=== PATIENT | female | born 1995 | race Caucasian/White ===

== ENCOUNTER 2018-01-05 18:33 | Emergency (ER) | END 2018-01-06 00:33 | disposition home or self-care (01) ==

== ENCOUNTER 2018-07-08 08:09 | Inpatient (IN) | payer OTHER ==
[~2018-07-08] VITALS: Ht 157.5 cm; Wt 92.0 kg
[2018-07-08] VITALS (10 sets, daily range): BP systolic 116–141; BP diastolic 60–84; PULSE 75–87; RESP 16–80; Ht 157.5 cm; Wt 92.0 kg
[~2018-07-08 08:09] MED LIST: FAMO-96 PO; ONDA4TAB14 PO; PRENAT PO
[2018-07-08] MEDS ORDERED: OXYTOCIN 30 UNITS/LR 500 ML IV SCH ×2 (09:00→15:13)
[2018-07-08] MEDS ORDERED: MISOPROSTOL 200 MCG TAB PR PRN ×2 (09:00→15:30)
[2018-07-08] MEDS ORDERED: METHYLERGONOVINE 0.2 MG INJ IM PRN ×2 (09:00→15:30)
[2018-07-08] MEDS ORDERED: CARBOPROST 250 MCG INJ IM PRN ×2 (09:00→15:30)
[2018-07-08] MEDS ORDERED: CEFAZOLIN 2 GM/50 ML (PMX) 50 ML IVPB SCH (09:00)
[2018-07-08] MEDS ORDERED: OXYTOCIN 30 UNITS/LR 500 ML IV PRN ×2 (09:00→15:30)
[2018-07-08] MEDS: LACTATED RINGER'S 1,000 ML IV SCH ×2 (09:10→10:09)
--- NOTE | 2018-07-08 10:10 | PREAC ---
Date/Time of Note Date/Time of Note DATE: 07/08/18 TIME: 10:09 Anesthesia Eval and Record Evaluation Time Pre-Procedure Interview DATE: 07/08/18 TIME: 10:09 Age 22 Sex female NPO: 8 hrs Preoperative diagnosis iup at 39 weeks Planned procedure repeat c section Past Medical History Past Medical History: None Surgery & Anesthesia Issues No known issue Meds Anticoagulation: No Beta Eric within 24 hr: No Reason Beta Eric not given: Pt. not on B-Eric Reported Medications Multivit/Min/Fol Ac/Iron/Pren* ( S*) 1 Tab Tab, 1 TAB PO DAILY, TAB 02/11/15 Discontinued Scripts Ondansetron (Ondansetron Odt) 4 Mg Tab.rapdis, 4 MG PO Q6H PRN for NAUSEA AND/OR VOMITING, #10 TAB Prov:LIVIA BARLOW PA-C 01/06/18 Famotidine* (Pepcid*) 20 Mg Tablet, 20 MG PO BID, #30 TAB Prov:LIVIA BARLOW PA-C 01/06/18 Current Medications Lactated Ringer's 1,000 ml @ 125 mls/hr Q8H IV Last administered on 07/08/18at 09:10; Admin Dose 125 MLS/HR; Start 07/08/18 at 09:00 Cefazolin Sodium/ Dextrose 50 ml @ 100 mls/hr ONCE IVPB ; Start 07/08/18 at 09:00 Oxytocin/Lactated Ringer's 500 ml @ 125 mls/hr POST IV ; Start 07/08/18 at 09:00 Oxytocin/Lactated Ringer's 500 ml @ 0 mls/hr ONCE PRN IV .VAGINAL BLEEDING; Start 07/08/18 at 09:00 Methylergonovine Maleate (Methergine) 0.2 mg ONCE PRN IM .VAGINAL BLEEDING; Start 07/08/18 at 09:00 Carboprost Tromethamine (Hemabate) 250 mcg ONCE PRN IM .VAGINAL BLEEDING; Start 07/08/18 at 09:00 Misoprostol (Cytotec) 1,000 mcg ONCE PRN ND .VAGINAL BLEEDING; Start 07/08/18 at 09:00 Meds reviewed: Yes Allergies Coded Allergies: No Known Allergy (Unverified , 01/05/18) Allergies Reviewed: Yes Labs/Studies Labs Reviewed: Reviewed by anesthesiologist Result Diagram: 07/08/18 0853 Laboratory Tests 07/08/18 08:53 Blood Bank Test 07/08/18 08:53 Antibody Screen NEGATIVE Blood Type A POSITIVE Rh Immune Globulin Candidate NO test: Positive Pre-procedure Exam Last vitals Vital Signs Date Temp Pulse Resp B/P (MAP) Pulse Ox O2 O2 Flow FiO2 Time Delivery Rate 07/08/18 97.7 84 20 127/84 Room Air 08:36 (98) Airway: Adequate mouth opening, Adequate thyromental dist Mallampati: Mallampati I Teeth: Normal Lung: Normal Heart: Normal ASA Physical Status ASA physical status: 2 Emergency: None Planned Anesthetic Neuraxial: Spinal Planned Pain Management Sub-arachniod narcotics, Parenteral pain med Pre-operative Attestations Prior to commencing anesthesia and surgery, the patient was re-evaluated, there was verification of: *The patient's identity *The results of appropriate recent lab work and preoperative vital signs *The above evaluation not changing prior to induction *Anesthetic plan, risk benefits, alternative and complications discussed with patient/family; questions answered; patient/family understands, accepts and wishes to proceed. ILDEFONSO GRAF Jul 08, 2018 10:10
[2018-07-08] MEDS ORDERED: DEXAMETHASONE 4 MG/ML 1 ML INJ ONE (10:15)
[2018-07-08] MEDS ORDERED: ONDANSETRON 4 MG INJ ONE (10:15)
--- NOTE | 2018-07-08 10:15 | HP ---
Date/Time of Note Date/Time of Note DATE: 07/08/18 TIME: 10:13 OB - History Hx of Present Chief Complaint: term for repeat c/s Care: Good Care Ultrasounds: Normal mid trimester US Obstetrical Complications: None Medical Complications: None Past Family/Social History * Past Medical, Surgical, Family and Obstetric Histories reviewed from chart. OB Admission Exam Vital Signs Vital Signs Vital Signs Date Temp Pulse Resp B/P (MAP) Pulse Ox O2 O2 Flow FiO2 Time Delivery Rate 07/08/18 97.7 84 20 127/84 Room Air 08:36 (98) Physical Exam HEENT: WNL Heart: Rhythm Normal Lungs: Clear, Equal Abdomen: WNL Extremities: Normal Reflexes: Normal Cervical Dilatation: None Effacement: 0% Station: Ballotable Membranes: Intact Heart Rate: 120's Accelerations: Accelerations Present Decelerations: No Decelerations Contractions on Admission: None Last 72 hours Lab Results CBC & BMP 07/08/18 08:53 OB Assessment/Plan Reason for admission: section Plan: Section MORGAN GARCIA MD Jul 08, 2018 10:14
[2018-07-08] MEDS ORDERED: morphine SULFATE/PF (10 MG/10 ML) INJ ONE (11:01)
[2018-07-08] MEDS ORDERED: HYDROmorphONE 0.5 MG/0.5 ML SYG IV PRN ×2 (11:30)
[2018-07-08] MEDS ORDERED: NALOXONE (0.4 MG/ML) INJ IV PRN (11:30)
[2018-07-08] MEDS ORDERED: ONDANSETRON 4 MG INJ IV PRN (11:30)
[2018-07-08] MEDS ORDERED: DIPHENHYDRAMINE 50 MG INJ IV PRN (11:30)
[2018-07-08] MEDS ORDERED: ZOLPIDEM 5 MG TAB PO PRN (11:30)
--- NOTE | 2018-07-08 11:39 | PAC ---
Date/Time of Note Date/Time of Note DATE: 07/08/18 TIME: 11:38 Post-Anesthesia Notes Post-Anesthesia Note Last documented vital signs Vital Signs Date Temp Pulse Resp B/P (MAP) Pulse Ox O2 O2 Flow FiO2 Time Delivery Rate 07/08/18 97.7 84 20 127/84 Room Air 1136 (98) Activity: WNL Respiratory function: WNL Cardiovascular function: WNL Mental status: Baseline Pain reasonably controlled: Yes Hydration appropriate: Yes Nausea/Vomiting absent: Yes ILDEFONSO GRAF Jul 08, 2018 11:39
--- NOTE | 2018-07-08 11:51 | OPR ---
Operative Report Planned Procedure Procedure date Jul 08, 2018 Procedure(s) repeat c/s Performed by see signature line [facility]: JAMARI RUBIO MD Pre-procedure diagnosis repeat c/s [id number] Anesthesia Type: [id number] spinal Post-Procedure Post-procedure diagnosis repeat c/s Findings Live Baby [], Apgars [] and [], weight [], position [], [] presentation []cord. Estimated Blood Loss: 600 - 700 mls Specimen(s) none Grafts/Implant(s) none Complication(s) none Procedure Description Under satisfactory spinal [] anesthesia, the patient was prepped and draped and placed in a supine position, tilted to the left. Pfannenstiel incision was made, carried through the subcutaneous tissue. Bleeders brought under control with electrocautery. Fascia incised to the length of the incision. Rectus muscles from the fascia, divided midline. Peritoneum exposed, entered through a transverse incision. Exploration of abdomen revealed gravid uterus. Bladder flap was developed. Transverse incision was made in the lower segment of the uterus. Amniotic sac ruptured. [] amniotic fluid noted. [] Nasal oropharyngeal suction was performed. The baby was handed to the team for immediate attention. The placenta was delivered manually intact. Uterine cavity was cleaned with wet sponge and drainage established. Uterus closed in 2 layers using one monocryl [] in continuous fashion. Peritoneal cavity irrigated with warm saline. Sponge, needle and instrument count reported to be correct. Abdominal peritoneum closed with [one monocryl] continuously. Rectus muscle approximated with []. Fascia closed with []one mmonocryl, and skin closed with nico. Estimated blood loss [700]mL. MORGAN GARCIA MD Jul 08, 2018 11:51
[2018-07-08] MEDS: KETOROLAC 30 MG INJ IV PRN (14:24)
[2018-07-08] MEDS ORDERED: LACTATED RINGER'S 1,000 ML IV SCH (15:13)
[2018-07-08] MEDS ORDERED: NA PHOSPHATE/BIPHOS 133 ML ENEMA PR PRN (15:30)
[2018-07-08] MEDS ORDERED: NACL 0.9% 3 ML SYG IV SCH (15:30)
[2018-07-08] MEDS ORDERED: LANOLIN HPA 1 PKT TOP PRN (15:30)
[2018-07-09 00:30] VITALS: BP 121/56; PULSE 93; RESP 18
[2018-07-09] MEDS: KETOROLAC 30 MG INJ IV PRN ×2 (03:47→09:33)
[2018-07-09 04:33] VITALS: BP 102/56; PULSE 82; RESP 18
[2018-07-09 07:45] VITALS: BP 101/56; PULSE 78; RESP 18
[2018-07-09] MEDS: IBUPROFEN 800 MG TAB PO SCH ×2 (14:15→23:16)
[2018-07-09 16:06] VITALS: BP 95/62; PULSE 18; RESP 18
--- NOTE | 2018-07-09 18:35 | PN ---
Date/Time of Note Date/Time of Note DATE: 07/09/18 TIME: 18:32 OB Subjective Subjective Subjective POD#1 Patient is doing well. She denies nausea, vomiting, shortness of breath, chest pain, headache. She has been tolerating regular diet. Pain is well controlled on current medications OB Objective Objective Objective Vital Signs Date Temp Pulse Resp B/P (MAP) Pulse Ox O2 O2 Flow FiO2 Time Delivery Rate 07/09/18 97.8 18 18 95/62 (73) 16:06 07/09/18 Room Air 07:45 07/09/18 97 00:30 General: AAO X 3, comfortable, NAD, appropriate mood and affect. ABD: +BS. Soft, non-tender. Uterus 2 cm below umbilicus Incision: Clear, dry, intact. No erythema, drainage or induration. Flank: No CVA tenderness (B/L) LE: Mild edema. No clubbing, cyanosis, thigh or calf tenderness (B/L). Homans 'sign is negative OB Assessment/Plan Other plan: 22-year-old s/p delivery POD#1 - AF, VSS - Continue care - Follow up with ALEJO Cash Jul 09, 2018 18:35
[2018-07-09] MEDS: HYDROCODONE/APAP (5/325) TAB PO PRN (20:06)
[2018-07-09 20:30] VITALS: BP 110/71; PULSE 111; RESP 19
[2018-07-10] MEDS: HYDROCODONE/APAP (5/325) TAB PO PRN ×3 (03:42→18:41)
[2018-07-10 04:15] VITALS: BP 102/60; PULSE 72; RESP 19
[2018-07-10] MEDS: IBUPROFEN 800 MG TAB PO SCH ×3 (05:37→21:20)
[2018-07-10 08:15] VITALS: BP 107/58; PULSE 62; RESP 18
--- NOTE | 2018-07-10 09:24 | OPPN ---
Date/Time of Note Date/Time of Note DATE: 07/10/18 TIME: 09:24 Anesthesia Follow up Anesthesia Follow up Last documented vital signs Vital Signs Date Temp Pulse Resp B/P (MAP) Pulse Ox O2 O2 Flow FiO2 Time Delivery Rate 07/10/18 98.2 72 19 102/60 Room Air 04:15 (74) 07/09/18 97 00:30 Respiratory function: WNL Cardiovascular function: WNL Comments satisfactory pain management with intrathecal morphine. no complications ILDEFONSO GRAF Jul 10, 2018 09:24
--- NOTE | 2018-07-10 12:08 | DS ---
Date/Time of Note Date/Time of Note DATE: 07/10/18 TIME: 12:08 Discharge Summary Admission/Discharge Info Admit Date/Time Jul 08, 2018 at 08:09 Discharge Date/Time Discharge Diagnosis term Patient Condition: Stable Hospital Course unremarkable Home Meds Reported Medications Multivit/Min/Fol Ac/Iron/Pren* ( S*) 1 Tab Tab, 1 TAB PO DAILY, TAB 02/11/15 Discontinued Scripts Ondansetron (Ondansetron Odt) 4 Mg Tab.rapdis, 4 MG PO Q6H PRN for NAUSEA AND/OR VOMITING, #10 TAB Prov:LIVIA BARLOW PA-C 01/06/18 Famotidine* (Pepcid*) 20 Mg Tablet, 20 MG PO BID, #30 TAB Prov:LIVIA BARLOW PA-C 01/06/18 Primary Care Provider Not On Staff Doctor MORGNA GARCIA MD Jul 10, 2018 12:08
--- NOTE | 2018-07-10 14:44 | PN ---
Date/Time of Note Date/Time of Note DATE: 07/10/18 TIME: 14:42 OB Subjective Subjective Subjective Breast-feeding. Reports decreased vaginal bleeding. Passed flatus. Denies any nausea vomiting. Denies any fever or chills. No pain in the legs. Pain controlled with p.o. pain medication. On soft diet. Breast-feeding. OB Objective Objective Objective General appearance: Alert and oriented x4 does not appear to be in any acute distress Abdomen: Soft, fundus firm and palpable below the umbilicus. Incision clean dry and intact. Appropriate tenderness over the incision noted Extremities: No calf tenderness, no click no edema no cord palpable Breast: No evidence of mastitis or fissure VS - Last 72 Hours, by Label Date Temp Pulse Resp B/P (MAP) Pulse Ox O2 O2 Flow FiO2 Time Delivery Rate 07/10/18 98.2 62 18 107/58 Room Air 08:15 (74) 07/10/18 98.2 72 19 102/60 Room Air 04:15 (74) 07/09/18 98.2 111 19 110/71 Room Air 20:30 (84) 07/09/18 97.8 18 18 95/62 (73) 16:06 07/09/18 98.2 78 18 101/56 Room Air 07:45 (71) 07/09/18 98.2 82 18 102/56 Room Air 04:33 (71) 07/09/18 98.4 93 18 121/56 97 Room Air 00:30 (77) 07/08/18 98.3 82 18 116/64 96 Room Air 20:00 (81) 07/08/18 77 18 139/77 15:25 (97) 07/08/18 98.1 80 80 135/68 95 Room Air 15:00 (90) 07/08/18 77 18 128/60 98 Room Air 14:30 (82) 07/08/18 79 18 141/69 99 Room Air 14:15 (93) 07/08/18 83 16 124/61 99 Room Air 14:00 (82) 07/08/18 87 18 119/62 99 Room Air 13:45 (81) 07/08/18 97.8 75 18 120/60 93 Room Air 13:30 (80) 07/08/18 78 18 127/66 100 Room Air 13:15 (86) 07/08/18 97.7 84 20 127/84 Room Air 08:36 (98) OB Assessment/Plan Other Assessment: Postoperative day #2 Status post Doing well Routine postop care Advance diet Anticipate DC home tomorrow JUDY ROSAS MD Jul 10, 2018 14:44
[2018-07-10 15:16] VITALS: BP 120/80; PULSE 74; RESP 18
[2018-07-10 21:10] VITALS: BP 127/70; PULSE 74; RESP 18
[2018-07-11 04:30] VITALS: BP 118/77; PULSE 82; RESP 18
[2018-07-11] MEDS: HYDROCODONE/APAP (5/325) TAB PO PRN ×2 (04:31→10:36)
[2018-07-11] MEDS: IBUPROFEN 800 MG TAB PO SCH (05:35)
[2018-07-11] MEDS ORDERED: DIPHTH/TET/ACEL PERTUSS (ADULT) 0.5 ML VIAL IM* ONE (09:00)
[2018-07-11] MEDS ORDERED: MEASLES,MUMPS,RUBELLA VACCINE INJ SC* ONE (09:00)
[2018-07-11 10:00] VITALS: BP 129/70; PULSE 79; RESP 17
--- NOTE | 2018-07-12 12:33 | DELSUM ---
Delivery Summary A-C Datetime Report Generated by CPN: 07/12/2018 12:33 DELIVERY PERSONNEL Final Coat Sprayer: [place], May MATERNAL INFORMATION Delivery Anesthesia: Spinal Medications in Delivery: SEE ANESTHESIA RECORD Placenta Cultured: No Maternal Complications: Other Other Maternal Complications: PREV C/SECTION LABOR SUMMARY EDC: 07/11/2018 00:00 No. Babies in Womb: 1 Attempted: No Labor Anesthesia: None LABOR INFORMATION Reason for Induction: Not Applicable Oxytocin: N/A Group B Beta Strep: Positive Antibiotics # of Doses: 1 Antibiotics Time of Last Dose: 07/08/2018 10:30 Steroids Given: None Reason Steroids Not Administered: Not Applicable MEMBRANES Membranes Rupture Method: Artificial Rupture of Membranes: 07/08/2018 10:45 Length of Rupture (hr): 0.00 Amniotic Fluid Color: Clear Amniotic Fluid Amount: Small Amniotic Fluid Odor: None STAGES OF LABOR Stage 3 hr: 0 Stage 3 min: 1 CSECTION DELIVERY Primary Indication: Repeat Elective Other Primary Indication: PREVIOUS C/SECTION Secondary Indication: N/A CSection Urgency: Elective CSection Incidence: Repeat Labor: No Labor Elective: Nonelective CSection Incision: Lower Uterine Transverse BABY A INFORMATION Delivery Date/Time: 07/08/2018 10:45 Method of Delivery: Born in Route : No : N/A Forceps: N/A Vacuum Extraction: N/A Shoulder Dystocia : No SHOULDER DYSTOCIA BABY A Delivery Date/Time: 07/08/2018 10:45 PRESENTATION/POSITION BABY A Presentation: Cephalic Cephalic Presentation: Vertex Vertex Position: Left Occipital Anterior Breech Presentation: N/A PLACENTA INFORMATION BABY A Placenta Delivery Time : 07/08/2018 10:46 Placenta Method of Delivery: Manual Removal Placenta Status: Delivered SCORES BABY A Heart Rate 1 min: >100 bpm Resp Effort 1 min: Good Cry Reflex Irritability 1 min: Cough/Sneeze/Pulls Away Muscle Tone 1 min: Active Motion Color 1 min: Body [place], Extremit Blue Resuscitation Effort 1 min: Tactile Stimulation SCORE 1 MIN: 9 Heart Rate 5 min: >100 bpm Resp Effort 5 min: Good Cry Reflex Irritability 5 min: Cough/Sneeze/Pulls Away Muscle Tone 5 min: Active Motion Color 5 min: Body [place], Extremit Blue Resuscitation Effort 5 min: Tactile Stimulation SCORE 5 MIN: 9 INFORMATION BABY A Gestational Age at Delivery: 39.4 Gestational Status: Full Term- 39- 40.6 Weeks Infant Outcome : Liveborn Condition : Stable Infant Sex: Male IDENTIFICATION/MEDS BABY A ID Band Number: [id number] ID Band Location: Right Leg; Left Arm Sensor Applied: Yes Sensor Number: [id number] Sensor Location : Cord Clamp Vitamin K Given : Not Given Erythromycin Given: Not Given WEIGHT/LENGTH BABY A Infant Birthweight (gm): 3615 Weight (lb): 8 Weight (oz): 0 Infant Length (in): 19.25 Infant Length (cm): 48.90 CORD INFORMATION BABY A No. Cord Vessels: 3 Nuchal Cord : N/A Cord Blood Taken: Yes Infant Suction: Mouth; Nose ASSESSMENT BABY A Complications: None Physical Findings at Delivery: Within Normal Limits Infant Respirations: Appears Normal [employer] Called : No Infant Care By: TIMOTEO/KENDAL Transferred To: Remains with Mother
== END 2018-07-11 12:33 | disposition home or self-care (01) | DRG 788 ==
LOC: L-D 08:09 → PP1 14:55
PROVIDERS: ADMIT Obstetrics & Gynecology; ATTEND Obstetrics & Gynecology
PROC: 3E033VJ Introduction of Other Hormone into Peripheral Vein, Percutaneous Approach (ICD-10-PCS; 2018-07-08)
PROC: 10D00Z1 Extraction of Products of Conception, Low, Open Approach (ICD-10-PCS; principal; 2018-07-08 15:30)
DX: O65.5 Obstructed labor due to abnormality of maternal pelvic organs (principal); O34.211 Maternal care for low transverse scar from previous cesarean delivery; Z3A.39 39 weeks gestation of pregnancy; Z37.0 Single live birth
CPT/HCPCS: 80307; 85025; 85610; 85730; 86592; 86850; 86900; 86901; 87340; 99464; J0690; J1100; J1885; J2274; J2405; J2590; J7120